=== PATIENT | female | born 1930 | race Caucasian/White ===

== ENCOUNTER → 2017-05-28 08:56 | Outpatient (CLI) | payer MEDICARE, OTHER ==
[2011-04-19 14:21] VITALS: BMI 28.2
== END | disposition home or self-care (01) ==
LOC: D.OPS 05-24 10:00 → D.RAD 05-24 10:00 → D.OPS 08:56
DX: M16.12 Unilateral primary osteoarthritis, left hip (principal)

== ENCOUNTER → 2018-05-22 16:45 | Outpatient (CLI) | payer MEDICARE, OTHER ==
[2011-04-19 14:21] VITALS: BMI 28.2
== END | disposition home or self-care (01) ==
LOC: D.MAMMO 13:00
DX: Z12.31 Encounter for screening mammogram for malignant neoplasm of breast (principal)

== ENCOUNTER → 2018-10-07 13:58 | Outpatient (CLI) | payer MEDICARE, OTHER ==
[2011-04-19 14:21] VITALS: BMI 28.2
== END | disposition home or self-care (01) ==
LOC: D.CT 13:58
DX: I65.21 Occlusion and stenosis of right carotid artery (principal); R55 Syncope and collapse

== ENCOUNTER → 2019-09-17 10:02 | Outpatient (CLI) | payer MEDICARE, OTHER ==
[2011-04-19 14:21] VITALS: BMI 28.2
== END | disposition home or self-care (01) ==
LOC: D.US 10:02
PROVIDERS: ATTEND Thoracic Surgery (Cardiothoracic Vascular Surgery)
DX: I65.23 Occlusion and stenosis of bilateral carotid arteries (principal)